=== PATIENT | female | born 1970 | race African-American/Black ===

== ENCOUNTER 2019-05-21 00:57 | Emergency (ER) | payer OTHER ==
[~2019-05-21] VITALS: Ht 152.4 cm; Wt 74.8 kg
[2019-05-21] MEDS ORDERED: NORFLEX100MG PO (03:13)
[2019-05-21] MEDS ORDERED: KETO10TA2 PO (03:13)
== END 2019-05-21 03:23 ==
LOC: ER 00:57
DX: M54.5 Low back pain (principal); M62.830 Muscle spasm of back

== ENCOUNTER 2020-03-04 11:40 | Emergency (ER) | payer OTHER ==
[~2020-03-04] VITALS: Ht 152.4 cm; Wt 66.7 kg
[~2020-03-04 11:40] MED LIST: KETO10TA2 PO; NORFLEX100MG PO
== END 2020-03-04 15:45 | disposition home or self-care (01) ==
LOC: ER 11:40
DX: S80.212A Abrasion, left knee, initial encounter (principal); S20.221A Contusion of right back wall of thorax, initial encounter; W10.8XXA Fall (on) (from) other stairs and steps, initial encounter; Y93.89 Activity, other specified; Y92.59 Other trade areas as the place of occurrence of the external cause; Y99.8 Other external cause status

== ENCOUNTER 2021-03-18 08:53 | Emergency (ER) | payer OTHER ==
[~2021-03-18] VITALS: Ht 154.9 cm; Wt 73.5 kg
== END 2021-03-18 09:53 | disposition home or self-care (01) ==
LOC: ER 08:53
DX: H60.8X1 Other otitis externa, right ear (principal)

== ENCOUNTER 2022-10-23 20:42 | Emergency (ER) | payer OTHER ==
[~2022-10-23] VITALS: Ht 154.9 cm; Wt 76.2 kg
== END 2022-10-23 21:52 | disposition home or self-care (01) ==
LOC: ER 20:42
DX: T22.012A Burn of unspecified degree of left forearm, initial encounter (principal); X10.2XXA Contact with fats and cooking oils, initial encounter; Y93.G3 Activity, cooking and baking; Y92.9 Unspecified place or not applicable; Y99.9 Unspecified external cause status

== ENCOUNTER 2024-03-23 04:18 | Emergency (ER) | payer OTHER ==
[~2024-03-23] VITALS: Ht 154.9 cm; Wt 72.6 kg
[2024-03-23] MEDS ORDERED: KETOROLAC TROMETHAMINE 60 MG VIAL IM STA (04:49)
[2024-03-23] MEDS ORDERED: DEXAMETHASONE SODIUM PHOSPHATE 4 MG/ML VIAL IM STA (04:50)
[2024-03-23] MEDS ORDERED: ACETAMINOPHEN 500 MG GEL..CAP PO STA (04:50)
== END 2024-03-23 05:03 | disposition home or self-care (01) ==
LOC: ER 04:19
DX: M77.8 Other enthesopathies, not elsewhere classified (principal)